=== PATIENT | male | born 1970 | race Two or more races ===

== ENCOUNTER 2021-07-29 22:40 | Emergency (ER) | payer OTHER ==
[~2021-07-29] VITALS: Ht 182.9 cm; Wt 93.9 kg
[2021-07-30] MEDS ORDERED: ZITHROMAX500 MG PO (03:08)
[2021-07-30] MEDS ORDERED: MEDROL8 MG PO (03:08)
== END 2021-07-30 03:18 ==
LOC: ER 22:40
DX: U07.1 COVID-19 (principal); R50.9 Fever, unspecified

== ENCOUNTER 2023-02-05 13:52 | Emergency (ER) | payer OTHER ==
[~2023-02-05] VITALS: Ht 182.9 cm; Wt 100.7 kg
[~2023-02-05 13:52] MED LIST: MEDROL8 MG PO; ZITHROMAX500 MG PO
== END 2023-02-05 16:47 | disposition home or self-care (01) ==
LOC: ER 13:52
DX: M54.89 Other dorsalgia (principal)